=== PATIENT | female | born 1995 | race Caucasian/White ===

== ENCOUNTER 2017-08-29 02:19 | Emergency (ER) | payer BC ==
[2017-08-29] MEDS ORDERED: PHENAZOPYRIDINE HCL 100 MG TABLET (FP) PO ONE (02:20)
[2017-08-29] MEDS ORDERED: CEPHALEXIN MONOHYDRATE 500 MG CAPSULE (UD) PO ONE (02:20)
--- NOTE | 2017-08-29 02:20 | PDOC ---
History of Present Illness - General Chief Complaint: Urinary Problem Stated Complaint: UTI; pt has been having recurrent UTIs she went to a urologist who states that she had no structural pathology. Pt has no other complaints. She states that she and boyfriend practice safe sex and that she washed afterward and she urionates after. History Source: Patient Exam Limitations: No Limitations - History of Present Illness Timing/Duration: 4-6 hours Severity: mild Associated Symptoms: reports: denies symptoms Past History - Travel Traveled outside of the country in the last 30 days: No Close contact w/someone who was outside of country & ill: No - Past Medical History Allergies/Adverse Reactions: Allergies Allergy/AdvReac Type Severity Reaction Status Date / Time No Known Allergies Allergy Verified 06/01/16 13:10 Home Medications: Ambulatory Orders Control 06/01/16 Ciprofloxacin [Cipro (Restricted To Id)] 500 mg PO DAILY #14 tablet 06/01/16 Phenazopyridine HCl [Pyridium -] 100 mg PO TID PRN #6 tablet 06/01/16 Cephalexin Monohydrate [Keflex -] 250 mg PO Q6H #28 capsule 08/29/17 Cephalexin [Keflex] 250 mg PO QID #28 capsule 08/29/17 Cephalexin [Keflex] 250 mg PO QID #7 capsule 08/29/17 Phenazopyridine HCl [Pyridium] 100 mg PO BID #14 tablet 08/29/17 - Suicide/Smoking/Psychosocial Hx Smoking History: Never smoked Hx Alcohol Use: No Drug/Substance Use Hx: No Substance Use Type: None Review of Systems - Review of Systems Constitutional: No: Symptoms Reported, See HPI, Chills, Diaphoresis, Fever, Loss of Appetite, Malaise, Night Sweats, Weakness, Weight Stable, Unintentional Wgt. Loss, Unexplained wgt Loss, Other HEENTM: No: Symptoms Reported, See HPI, Eye Pain, Blurred Vision, Tearing, Recent change in vision, Double Vision, Cataracts, Ear Pain, Ocular Prothesis, Ear Discharge, Nose Pain, Nose Congestion, Tinnitus, Nose Bleeding, Hearing Loss , Throat Pain, Throat Swelling, Mouth Pain, Dental Problems, Difficulty Swallowing, Mouth Swelling, Other Respiratory: No: Symptoms reported, See HPI, Cough, Orthopnea, Shortness of Breath, SOB with Exertion, SOB at Rest, Stridor, Wheezing, Productive cough, Hemoptysis, Other Cardiac (ROS): No: Symptoms Reported, See HPI, Chest Pain, Edema, Irregular Heart Rate, Lightheadedness, Palpitations, Syncope, Chest Tightness, Other ABD/GI: No: Symptoms Reported, See HPI, Abdominal Distended, Abd. Pain w/ defecation, Blood Streaked Bowels, Constipated, Diarrhea, Difficulty Swallowing , Nausea, Poor Appetite, Poor Fluid Intake, Rectal Bleeding, Vomiting, Indigestion, Abdominal cramping, Tarry Stools, Other : Yes: Burning, Dysuria, Frequency, Urgency. No: Symptoms Reported, See HPI, Discharge, Flank Pain, Hematuria, Incontinence, Pain, Testicular Mass, Testicular Swelling, Lesions, Testicular Pain, Other Musculoskeletal: No: Symptoms Reported, See HPI, Back Pain, Gout, Joint Pain, Joint Swelling, Muscle Pain, Muscle Weakness, Neck Pain, Joint Stiffness, Other Integumentary: No: Symptoms Reported, See HPI, Bruising, Change in Color, Change in Hair/Nails, Dryness, Erythema, Flushing, Lesions, Lumps, Pallor, Pruritus, Rash, Sweating, Other Neurological: No: Symptoms reported, See HPI, Headache, Numbness, Paresthesia, Pre-Existing Deficit, Seizure, Tingling, Tremors, Weakness, Unsteady Gait, Ataxia, Dizziness, Other *Physical Exam - Physical Exam General Appearance: Yes: Nourished, Appropriately Dressed, Mild Distress HEENT: positive: EOMI, MEAGAN, Normal ENT Inspection, Normal Voice Neck: positive: Trachea midline, Normal Thyroid, Supple Respiratory/Chest: positive: Chest Tender, Lungs Clear, Normal Breath Sounds. negative: Respiratory Distress Cardiovascular: positive: Regular Rhythm, Regular Rate, S1, S2 Gastrointestinal/Abdominal: positive: Normal Bowel Sounds, Tender, Flat, Soft, Organomegaly Musculoskeletal: positive: Normal Inspection Extremity: positive: Normal Capillary Refill, Normal Inspection Integumentary: positive: Normal Color, Dry, Warm Neurologic: positive: level vial inspector II-XII NML intact, Fully Oriented, Alert Medical Decision Making - Medical Decision Making 08/29/17 03:49 PT COMES WITH SIMPLE UTI AFTER SEX WITH BOYFRIEND. SHE STATES THAT THIS ALWAYS HAPPENS. PT WILL BE TREATED WITH KEFLEX AND WITH PYRIDIUM AND MOTRIN. SHE HAS AN IUD AND SHE IS NOT . PT WILL BE ASKED TO FOLLOW WITH HER UROLOGIST NEEDED. *DC/Admit/Observation/Transfer Diagnosis at time of Disposition: UTI (urinary tract infection) - Discharge Dispostion Disposition: HOME Condition at time of disposition: Stable Admit: No - Prescriptions Prescriptions: Cephalexin [Keflex] 250 mg PO QID #7 capsule Cephalexin [Keflex] 250 mg PO QID #28 capsule Cephalexin Monohydrate [Keflex -] 250 mg PO Q6H #28 capsule Phenazopyridine HCl [Pyridium] 100 mg PO BID #14 tablet - Referrals - Patient Instructions Printed Discharge Instructions: How to Detect and Treat STDs, Urinary Tract Infection - Post Discharge Activity Forms/Work/School Notes: Back to Work, Back to School
[2017-08-29] MEDS ORDERED: IBUPROFEN 600 MG TABLET (FP) PO ONE (02:22)
[2017-08-29 02:35] VITALS: BP 106/78; PULSE 65; BMI 19.5
[2017-08-29 03:04] LABS: URINE APPEARANCE CLEAR; URINE BILIRUBIN NEGATIVE (NEGATIVE); URINE BLOOD 3+ (NEGATIVE); URINE COLOR COLORLESS; URINE GLUCOSE (UA) NEGATIVE (NEGATIVE); URINE KETONE NEGATIVE (NEGATIVE); URINE NITRITE NEGATIVE (NEGATIVE); URINE PROTEIN NEGATIVE (NEGATIVE); URINE UROBILINOGEN NEGATIVE mg/dL (0.2-1.0)
[2017-08-29 03:19] LABS: URINE LEUK ESTERASE 3+ (NEGATIVE)
== END 2017-08-29 02:48 | disposition home or self-care (01) ==
LOC: FER 02:19
DX: N39.0 Urinary tract infection, site not specified (principal)
CPT/HCPCS: 81003; 81015; 87086; 99281-25

== ENCOUNTER 2017-10-10 06:06 | Emergency (ER) | payer BC, OTHER ==
--- NOTE | 2017-10-10 06:08 | PDOC ---
History of Present Illness - General Chief Complaint: Urinary Problem Stated Complaint: URINARY TRACT INFECTION Time Seen by Provider: 10/10/17 06:07 - History of Present Illness Initial Comments: 10/10/17 06:35 This 21y.o female with hx of recurrent UTI but no other serious medical problems presents with few hour hx of dysuria/urinary frequency/urgency. The patient also has mild nausea without vomiting. No hx of fever/back pain. UTI symptoms have occurred predictably several hours after intercourse even though she urinates and washes afterwards. She was seen by urology approximately 18 months ago([facility]). She states that cystoscopy was performed and she diagnosed with fungal cystitis. She then received several day course of anti -fungal medication Previous 2 urine C&S have not grown any bacteria She was seen here with UTI syptoms about 2 months ago ; she did well with course of Keflex and Pyridium. The patient had taken some of the extra Pyridium earlier today without relief No history of immunocompromise. IUD in place Past History - Past Medical History Allergies/Adverse Reactions: Allergies Allergy/AdvReac Type Severity Reaction Status Date / Time No Known Allergies Allergy Verified 10/10/17 06:07 Home Medications: Ambulatory Orders Sertraline HCl 100 mg PO HS 10/10/17 Trazodone HCl 100 mg PO HS 10/10/17 COPD: No - Suicide/Smoking/Psychosocial Hx Smoking History: Never smoked Have you smoked in the past 12 months: No Hx Alcohol Use: No Drug/Substance Use Hx: No Substance Use Type: None *Physical Exam - Physical Exam Comments: 10/10/17 06:47 GENERAL: Awake, alert, and fully oriented, in no mild distress secondary to dysuria/urinary urgency HEAD: No signs of trauma EYES: PERRLA, EOMI, sclera anicteric, conjunctiva clear ENT: Auricles normal inspection, hearing grossly normal, nares patent, oropharynx clear without exudates. Moist mucosa NECK: Normal ROM, supple, no lymphadenopathy, JVD, or masses LUNGS: Breath sounds equal, clear to auscultation bilaterally. No wheezes, and no crackles HEART: Regular rate and rhythm, normal S1 and S2, no murmurs, rubs or gallops ABDOMEN: Soft, nontender, normoactive bowel sounds. No guarding, no rebound. No masses EXTREMITIES: Normal range of motion, no edema. No clubbing or cyanosis. No cords, erythema, or tenderness NEUROLOGICAL: Cranial nerves II through XII grossly intact. Normal speech, normal gait SKIN: Warm, Dry, normal turgor, no rashes or lesions noted. Medical Decision Making - Medical Decision Making 10/10/17 06:48 pyridium 200mg PO ordered awaiting results of UA/PGU *DC/Admit/Observation/Transfer Diagnosis at time of Disposition: UTI (urinary tract infection) - Discharge Dispostion Condition at time of disposition: Stable - Referrals Referrals: Stan Nam MD [Staff Physician] - - Patient Instructions Printed Discharge Instructions: Urinary Tract Infection - Post Discharge Activity
[2017-10-10] MEDS ORDERED: PHENAZOPYRIDINE HCL 100 MG TABLET (FP) PO ONE (06:12)
[2017-10-10 06:19] VITALS: BP 110/75; PULSE 82; TEMP 97.4; BMI 19.5
[2017-10-10 07:08] LABS: HCG,QUALITATIVE URINE NEGATIVE; URINE APPEARANCE CLEAR; URINE BILIRUBIN NEGATIVE (<2.0 mg/dL); URINE BLOOD 2+ (NEGATIVE); URINE COLOR AMBER; URINE GLUCOSE (UA) NEGATIVE (NEGATIVE); URINE KETONE NEGATIVE (NEGATIVE); URINE NITRITE POSITIVE (NEGATIVE); URINE PROTEIN NEGATIVE (NEGATIVE)
[2017-10-10 07:13] LABS: URINE LEUK ESTERASE 2+ (NEGATIVE)
--- NOTE | 2017-10-10 07:24 | PDOC ---
*Physical Exam - Vital Signs Last Vital Signs Temp Pulse Resp BP Pulse Ox 97.4 F L 82 18 110/75 99 10/10/17 06:12 10/10/17 06:12 10/10/17 06:12 10/10/17 06:12 10/10/17 06:12 ED Treatment Course - ADDITIONAL ORDERS Additional order review: Laboratory Results 10/10/17 06:12 Urine Color Reina Urine Appearance Clear Urine pH 7.0 Ur Specific [place] 1.001 Urine Protein Negative Urine Glucose (UA) Negative Urine Ketones Negative Urine Blood 2+ H Urine Nitrite Positive Urine Bilirubin Negative Urine Urobilinogen 2.0 H Ur Leukocyte Esterase 2+ H Urine WBC (Auto) 5 Urine RBC (Auto) None Urine HCG, Qual Negative - Medications Given in the ED: ED Medications Discontinued Medications Generic Name Dose Route Start Last Admin Trade Name Freq PRN Reason Stop Dose Admin Phenazopyridine HCl 200 mg 10/10/17 06:12 10/10/17 06:18 Pyridium - PO 10/10/17 06:13 200 mg ONCE ONE Administration Medical Decision Making - Medical Decision Making 10/10/17 07:20 Case signed out to me by Dr. Covarrubias. Urine Test Results Urine Color Reina 10/10/17 06:12 Urine Appearance Clear 10/10/17 06:12 Urine pH 7.0 (5.0-8.0) 10/10/17 06:12 Ur Specific [place] 1.001 (1.001-1.035) 10/10/17 06:12 Urine Protein Negative (NEGATIVE) 10/10/17 06:12 Urine Glucose (UA) Negative (NEGATIVE) 10/10/17 06:12 Urine Ketones Negative (NEGATIVE) 10/10/17 06:12 Urine Blood 2+ (NEGATIVE) H 10/10/17 06:12 Urine Nitrite Positive (NEGATIVE) 10/10/17 06:12 Urine Bilirubin Negative (<2.0 mg/dL) 10/10/17 06:12 Ur Leukocyte Esterase 2+ (NEGATIVE) H 10/10/17 06:12 Urine test negative. Will treat as UTI with cephalexin. Pt states she has had many prior fungal infections (vaginal and urine) with antibiotics. Will prescribe diflucan as well. Pt states she will follow up with an urologist - Dr. Wylie. *DC/Admit/Observation/Transfer Diagnosis at time of Disposition: UTI (urinary tract infection) Qualifiers: Urinary tract infection type: site unspecified Hematuria presence: without hematuria Qualified Code(s): N39.0 - Urinary tract infection, site not specified - Discharge Dispostion Disposition: HOME Condition at time of disposition: Stable Admit: No - Prescriptions Prescriptions: Cephalexin [Keflex] 500 mg PO BID #14 capsule Fluconazole 150 mg PO ONCE #1 tablet Phenazopyridine HCl [Pyridium] 200 mg PO Q8H PRN #5 tablet PRN Reason: Bladder Pain - Referrals Referrals: Stan Nam MD [Staff Physician] - - Patient Instructions Printed Discharge Instructions: DI for Urinary Tract Infection (UTI) Additional Instructions: Please take the antibiotics (cephalexin) as prescribed. For pain control, you may take pyridium. This medication will likely make your urine and any other bodily fluids "orange" color. Do not be alarmed as this is an effect of the medication. Drink plenty of fluids and rest. Follow up with the urologist. If you develop symptoms of a yeast infection, please take a dose of fluconazole. - Post Discharge Activity
[2017-10-10] MEDS ORDERED: CEPHALEXIN MONOHYDRATE 500 MG CAPSULE (UD) PO ONE (07:27)
[2017-10-10] MEDS ORDERED: CEPHALEXIN MONOHYDRATE 500 MG CAPSULE (UD) ONE (07:28)
[2017-10-10] MEDS: CEPHALEXIN 250 MG/5 ML ORAL SUSPENSION PO ONE ×2 (07:29→07:32)
== END 2017-10-10 07:41 | disposition home or self-care (01) ==
LOC: FER 06:06
DX: N39.0 Urinary tract infection, site not specified (principal)
CPT/HCPCS: 81003; 81015; 84703; 87086; 99281-25